=== PATIENT | female | born 1995 | race Caucasian/White ===

== ENCOUNTER 2017-01-25 14:20 | Emergency (ER) | payer BC ==
[2017-01-25 15:09] VITALS: BP 104/65
--- NOTE | 2017-01-25 15:19 | UC ---
General HPI - HPI Summary HPI Summary: 21 yo female with PMH of frequent UTIs who presents with c/o N/V/D for 3-4 days. late evening developed acute onset of N/V/D. She saw pcp on Thursday and was dx with GI bug and prescribed zofran. She has continued nausea and abdominal discomfort, no vomiting or diarrhea in 2 days and reports low back pain but states this is her baseline. Denies flank pain. Denies hematuria, increased urinary frequency, urgency or burning with urination. No fevers or chills. Minimal food since but has been able to keep fluids down. - History of Current Complaint Chief Complaint: UCGI Stated Complaint: VOMITING,NAUSEA,FLANK PAIN Time Seen by Provider: 01/25/17 15:12 Hx Obtained From: Patient Onset/Duration: Sudden Onset Onset Severity: Severe Current Severity: Moderate Associated Signs & Symptoms: Positive: Abdominal Pain, Diarrhea, Nausea, Vomiting - Allergy/Home Medications Allergies/Adverse Reactions: Allergies Allergy/AdvReac Type Severity Reaction Status Date / Time Ondansetron AdvReac Severe Headache Verified 01/25/17 15:10 Sulfamethoxazole AdvReac Severe Abdominal Verified 01/25/17 15:10 w/Trimethoprim Pain [From Bactrim] Home Medications: Home Medications Ondansetron HCl [Zofran 4 MG TAB] 4 mg PO Q6HR PRN 01/25/17 [History Confirmed 01/25/17] PMH/Surg Hx/FS Hx/Imm Hx Previously Healthy: Yes - Hx of UTIs Endocrine History Of: Denies: Diabetes Cardiovascular History Of: Denies: Cardiac Disorders Respiratory History Of: Denies: Asthma - Surgical History Surgical History: None - Family History Known Family History: Positive: Hypertension - Social History Occupation: Employed Full-time Lives: With Family Alcohol Use: None Substance Use Type: None Smoking Status (MU): Never Smoked Tobacco Have You Smoked in the Last Year: No - Immunization History Most Recent Influenza Vaccination: No Hx Tetanus, Diphtheria Vaccination: Yes Vaccination Up to Date: Yes Review of Systems Constitutional: Negative, Other - N/V/D Skin: Negative Eyes: Negative ENT: Negative Respiratory: Negative Cardiovascular: Negative Gastrointestinal: Other - nausea Genitourinary: Negative Motor: Negative Neurovascular: Negative Musculoskeletal: Negative Neurological: Negative Psychological: Negative All Other Systems Reviewed And Are Negative: Yes Physical Exam Triage Information Reviewed: Yes Appearance: Well-Appearing, No Pain Distress, Ill-Appearing - mild Vital Signs: Initial Vital Signs Temp 99.6 F 01/25/17 14:57 Pulse 76 01/25/17 14:57 Resp 14 01/25/17 14:57 BP 104/65 01/25/17 14:57 Pulse Ox 100 01/25/17 14:57 Vital Signs Reviewed: Yes Eyes: Positive: Conjunctiva Clear ENT: Positive: Normal ENT inspection, Pharynx normal, TMs normal Dental Exam: Normal Neck exam: Normal Neck: Positive: Supple, Nontender, No Lymphadenopathy. Negative: Nuchal Rigidity Respiratory: Positive: Chest non-tender, Lungs clear, Normal breath sounds, No respiratory distress, No accessory muscle use. Negative: Respiratory distress, Decreased breath sounds, Accessory muscle use Cardiovascular: Positive: RRR, No Murmur, Pulses Normal, Brisk Capillary Refill. Negative: Tachycardia Abdomen Description: Positive: Nontender, No Organomegaly, Soft. Negative: Bruit, CVA Tenderness (R), CVA Tenderness (L), Distended, Guarding, Hernia @, Hepatomegaly, McBurney's Point Tenderness, Peritoneal Signs, Splenomegaly Bowel Sounds: Positive: Present Musculoskeletal Exam: Normal Musculoskeletal: Positive: Strength Intact, ROM Intact, No Edema Neurological: Positive: Alert Psychological Exam: Normal Course/Dx - Differential Dx - Multi-Symptom Differential Diagnoses: Urinary Tract Infection Provider Diagnoses: 1. Viral gastroenteritis. Discharge - Discharge Plan Condition: Stable Disposition: HOME Patient Education Materials: Gastroenteritis (ED) Forms: *Work Release Referrals: Reba Cohen MD [Primary Care Provider] - (follow up in 2 days if you are not feeling better) Additional Instructions: Increase your water intake, teas (peppermint, he), coconut water, Gatorade, broth.
== END 2017-01-25 16:08 | disposition home or self-care (01) ==
LOC: UCCORT 14:20
DX: A08.4 Viral intestinal infection, unspecified (principal); Z87.440 Personal history of urinary (tract) infections; Z88.2 Allergy status to sulfonamides; Z88.8 Allergy status to other drugs, medicaments and biological substances
CPT/HCPCS: 81003; 99211; G0463

== ENCOUNTER 2017-05-29 17:57 | Emergency (ER) | payer BC ==
[2017-05-29] MEDS ORDERED: Ketorolac INJ* 30 MG/ML 1 ML VIAL IM ONE (20:27)
[2017-05-29 21:01] VITALS: BP 116/72
--- NOTE | 2017-05-29 21:06 | RAD ---
CLINICAL HISTORY: Left flank pain COMPARISON: May 10, 2013 TECHNIQUE: Multiple contiguous axial CT scans were obtained of the abdomen and pelvis, without intravenous contrast enhancement. Coronal and sagittal multiplanar reformations are submitted for review. Oral contrast was not administered. FINDINGS: The study is limited by the lack of intravenous contrast. This limits evaluation of the solid organs and vasculature. LUNG BASES: The lung bases are clear. LIVER: The liver is normal in shape, size, contour, and attenuation. BILE DUCTS: There is no intrahepatic or extrahepatic biliary dilatation. GALLBLADDER: The gallbladder is normal, without pericholecystic inflammatory change. The stones noted on the previous examination is not evident on the current examination. PANCREAS: The pancreas is normal, without mass or ductal dilatation. SPLEEN: Normal in size and appearance. UPPER GI TRACT: Evaluation of the gastrointestinal tract is limited by incomplete gastric distention. The upper GI tract is unremarkable. SMALL BOWEL AND MESENTERY: The small bowel is normal in contour, course, and caliber. There is no obstruction or dilatation. COLON: The colon is normal in contour, course, caliber. There is no pericolonic inflammatory change. There is a tubular, vermiform, hollow viscus that is blind ending, and originates from the cecum, consistent with a normal appendix. There is no periappendiceal inflammatory change. This is best seen on images 115 through 126. ADRENALS: Normal bilaterally. KIDNEYS: The kidneys are normal in shape, size, contour, and axis. There is no hydronephrosis or nephrolithiasis. BLADDER: The bladder is incompletely distended but is grossly normal. PELVIC ORGANS: The uterus and adnexa are grossly normal for technique. Vascular calcifications are noted in the pelvis. AORTA: The aorta is normal. IVC: Unremarkable LYMPH NODES: There is no lymphadenopathy by size criteria. ABDOMINAL WALL: There is no evidence for abdominal wall hernia. BONES AND SOFT TISSUES: Unremarkable OTHER: None IMPRESSION: NO HYDRONEPHROSIS OR NEPHROLITHIASIS.
--- NOTE | 2017-05-29 21:18 | UC ---
Abdominal Pain Female HPI - HPI Summary HPI Summary: 22 yo male with left flank pain x 4 weeks anorexia increased frequency of urination hot and cold flashes smell of food makes her sick nausea wt loss - History of Current Complaint Chief Complaint: UCGU Stated Complaint: BACK PAIN,FREQ URINATING Time Seen by Provider: 05/29/17 20:12 Hx Obtained From: Patient Hx Last Menstrual Period: 05/12/17 Onset/Duration: Gradual Onset, Lasting Weeks Timing: Constant Severity Initially: Moderate Severity Currently: Moderate Pain Intensity: 6 Pain Scale Used: 0-10 Numeric Location: Other - left flank Character: Colicy Alleviating Factor(s): Nothing Associated Signs and Symptoms: Positive: Negative Allergies/Adverse Reactions: Allergies Allergy/AdvReac Type Severity Reaction Status Date / Time Ondansetron AdvReac Severe Headache Verified 05/29/17 18:02 Sulfamethoxazole AdvReac Severe Abdominal Verified 05/29/17 18:02 w/Trimethoprim Pain [From Bactrim] PMH/Surg Hx/FS Hx/Imm Hx Previously Healthy: Yes - Surgical History Surgical History: None - Family History Known Family History: Positive: Hypertension - Social History Alcohol Use: None Substance Use Type: None Smoking Status (MU): Never Smoked Tobacco Have You Smoked in the Last Year: No - Immunization History Most Recent Influenza Vaccination: No Hx Tetanus, Diphtheria Vaccination: Yes Vaccination Up to Date: Yes Review of Systems Constitutional: Negative Skin: Negative Eyes: Negative ENT: Negative Respiratory: Negative Cardiovascular: Negative Gastrointestinal: Nausea Genitourinary: Negative Motor: Negative Neurovascular: Negative Musculoskeletal: Negative Neurological: Negative Psychological: Negative All Other Systems Reviewed And Are Negative: Yes Physical Exam Triage Information Reviewed: Yes Appearance: Well-Appearing, No Pain Distress, Well-Nourished Vital Signs: Initial Vital Signs Temp 99.3 F 05/29/17 17:58 Pulse 86 05/29/17 17:58 Resp 16 05/29/17 17:58 BP 118/80 05/29/17 17:58 Pulse Ox 100 05/29/17 17:58 Vital Signs Reviewed: Yes Eyes: Positive: Conjunctiva Clear ENT: Positive: Hearing grossly normal. Negative: Nasal congestion, Nasal drainage, Tonsillar exudate, Trismus, Muffled/hoarse voice Neck: Positive: Supple, Nontender Respiratory: Positive: Lungs clear, Normal breath sounds, No respiratory distress Cardiovascular: Positive: RRR, No Murmur Abdomen Description: Positive: Nontender, No Organomegaly, CVA Tenderness (L). Negative: Distended, Guarding, McBurney's Point Tenderness, Peritoneal Signs, Pulsatile Mass Bowel Sounds: Positive: Present Musculoskeletal: Positive: ROM Intact, No Edema Neurological: Positive: Alert Psychological Exam: Normal Skin Exam: Normal Abd Pain Female Course/Dx - Differential Dx/Diagnosis Provider Diagnoses: left flank pain of uncertain cause. wt loss. nausea Discharge - Discharge Plan Condition: Stable Disposition: HOME Patient Education Materials: Flank Pain (ED) Referrals: Reba Cohen MD [Primary Care Provider] - As Soon As Possible Additional Instructions: I am unsure of the cause of your flank pain/increased urinary frequency and wt loss I suggest you try mylanta 30 ml (2 tablespoons) 4 -6 x day see your provider next week ...you may need further work up
[2017-05-29] MEDS ORDERED: Al Hydrox/Mg Hydrox/Simet LIQ* 30 ML UDC PO ONE (21:20)
[2017-05-30 14:51] LABS: Hematocrit 39 % (35-47); Hemoglobin 13.3 g/dl (12.0-16.0); Mean Corpuscular HGB Conc 34 g/dl (31-36); Mean Corpuscular Hemoglobin 31 pg (27-31); Mean Corpuscular Volume 92 fL (80-97); Mean Platelet Volume 9 um3 (7.4-10.4); Red Blood Count 4.24 10^6/ul (4.0-5.4); Red Cell Distribution Width 13 % (10.5-15); White Blood Count 8.1 10^3/ul (3.5-10.8)
[2017-05-30 15:13] LABS: Albumin 4.4 g/dL (3.2-5.2); Calcium 9.1 mg/dL (8.6-10.3); EGFR African American 104.3 (>60); EGFR Non-African American 81.1 (>60); Globulin 2.5 g/dL (2-4); Total Bilirubin 0.4 mg/dL (0.2-1.0); Total Protein 6.9 g/dL (6.4-8.9)
--- NOTE | 2017-06-01 14:35 | UC ---
Progress - Progress Note Progress Note: please call this pt and let her know that the results of her urine culture were inconclusive, possibly contaminated. if pt is still having symptoms, she can be re-evaluated by her pcp who can decide whetger the pt needs another ua. eh can tell her pcp that we want her seen tomorrow.
== END 2017-05-29 21:45 | disposition home or self-care (01) ==
LOC: UCEAST 17:57
DX: R10.9 Unspecified abdominal pain (principal); R63.4 Abnormal weight loss; R11.0 Nausea
CPT/HCPCS: 36415; 74176; 80053; 81003; 85027; 87086; 87088; 87491; 87591; 99212; A9270-GY; G0463; J1885

== ENCOUNTER 2018-08-27 16:00 | Emergency (ER) | payer OTHER ==
[2018-08-27 16:26] VITALS: BP 127/67
--- NOTE | 2018-08-27 16:51 | ED ---
Abdominal Pain/Female - HPI Summary HPI Summary: 23 yr old with five days of progressive worsening left flank pain, nausea, some diarrhea. No urinary symptoms. No SOB. Her pain is worse with eating and laying on her left side. She has had chills, but denies fever. She has no other complaints. - History of Current Complaint Chief Complaint: UCGeneralIllness Stated Complaint: LEFT SIDE/BACK PAIN Time Seen by Provider: 08/27/18 16:38 Hx Last Menstrual Period: 07/29/18 Pain Intensity: 6 Allergies/Adverse Reactions: Allergies Allergy/AdvReac Type Severity Reaction Status Date / Time sulfamethoxazole Allergy Severe Abdominal Verified 08/27/18 16:46 [From Bactrim] Pain trimethoprim [From Bactrim] Allergy Severe Abdominal Verified 08/27/18 16:46 Pain ciprofloxacin [From Cipro] Allergy Hives Verified 08/27/18 16:46 ondansetron Allergy Headache Verified 08/27/18 16:46 Home Medications: Home Medications Cyanocobalamin INJ * [Vitamin B12 INJ *] 1 syr EVERY OTHER DAY 08/27/18 [ History Confirmed 08/27/18] Norgestimate-Eth Estradiol(NF) [Ortho Tri-Cyclen (NF)] 1 tab DAILY 08/27/18 [ History Confirmed 08/27/18] PMH/Surg Hx/FS Hx/Imm Hx Endocrine/Hematology History: Reports: Hx Thyroid Disease - Rahat's Denies: Hx Diabetes Respiratory History: Denies: Hx Asthma Infectious Disease History: No Infectious Disease History: Denies: Traveled Outside the [place] in Last 30 Days - Family History Known Family History: Positive: Hypertension - Social History Alcohol Use: Rare Substance Use Type: Reports: None Smoking Status (MU): Never Smoked Tobacco Have You Smoked in the Last Year: No Review of Systems Positive: Chills Positive: Abdominal Pain, Diarrhea, Nausea Positive: flank pain All Other Systems Reviewed And Are Negative: Yes Physical Exam Triage Information Reviewed: Yes Vital Signs On Initial Exam: Initial Vitals Temp Pulse Resp BP Pulse Ox 98.3 F 77 15 127/67 100 08/27/18 16:21 08/27/18 16:21 08/27/18 16:21 08/27/18 16:21 08/27/18 16:21 Vital Signs Reviewed: Yes Appearance: Positive: Well-Appearing, No Pain Distress Skin: Positive: Warm, Skin Color Reflects Adequate Perfusion Head/Face: Positive: Normal Head/Face Inspection Eyes: Positive: EOMI ENT: Positive: Normal ENT inspection Respiratory/Lung Sounds: Positive: Clear to Auscultation, Breath Sounds Present Cardiovascular: Positive: RRR. Negative: Murmur Abdomen Description: Positive: Soft, CVA Tenderness (L). Negative: Distended, Guarding Musculoskeletal: Positive: Strength/ROM Intact Neurological: Positive: Sensory/Motor Intact, Alert, Oriented to Person Place, Time, CN Intact II-III Psychiatric: Positive: Normal - [place] Coma Scale Best Eye Response: 4 - Spontaneous Best Motor Response: 6 - Obeys Commands Best Verbal Response: 5 - Oriented Coma Scale Total: 15 Diagnostics - Vital Signs Vital Signs Temp Pulse Resp BP Pulse Ox 08/27/18 16:21 98.3 F 77 15 127/67 100 - Laboratory Lab Results: Lab Results 08/27/18 08/27/18 Range/Units 16:39 16:41 POC Urine Color Yellow POC Urine Clarity Slightly cloudy POC Urine pH 6.0 (5-9) POC Ur Specif [place] 1.025 (1.010-1.030) POC Urine Protein Negative (Negative) POC Ur Glucose (UA) Negative (Negative) POC Urine Ketones Negative (Negative) POC Urine Blood Negative (Negative) POC Urine Nitrite Negative (Negative) POC Urine Bilirubin Negative (Negative) POC Urine Urobilinogen 1.0 (Negative) POC U Leukocyte Esteras Negative (Negative) POC Ur Test Negative (Negative) Lab Statement: Any lab studies that have been ordered have been reviewed, and results considered in the medical decision making process. Abdominal Pain Fem Course/Dx - Course Course Of Treatment: 23 yr old with flank pain, and low abd pain. She will go to the ER for further work up as we have no CT, no ultrasound and labs available for expedited work up now. 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 - Diagnoses Provider Diagnoses: Flank pain, Abdominal pain Discharge - Sign-Out/Discharge Documenting (check all that apply): Patient Departure All imaging exams completed and their final reports reviewed: No Studies - Discharge Plan Condition: Good Disposition: HOME-RECOMMEND TO ED Patient Education Materials: Acute Abdominal Pain (ED), Flank Pain (ED) Referrals: Anurag Luna MD [Primary Care Provider] - Additional Instructions: You need to go to the ER for further work up of your flank pain, and abdominal pain. Please go now and do not delay. - Billing Disposition and Condition Condition: GOOD Disposition: Home-Recommend to ED
== END 2018-08-27 16:55 | disposition home health service (06) ==
LOC: UCCORT 16:00
DX: R10.9 Unspecified abdominal pain (principal); Z22.1 Carrier of other intestinal infectious diseases; Z88.1 Allergy status to other antibiotic agents
CPT/HCPCS: 81003; 84702; 99212; G0463

== ENCOUNTER 2018-12-09 05:03 | Emergency (ER) | payer OTHER ==
--- OUTSIDE RECORDS SUMMARY | 2018-12-09 05:09 | XMS REPORT | Continuity of Care Document ---
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 Anurag Luna MD Primary Care Physician Unavailable Payers Type Date Identification Numbers Payment Provider Subscriber Policy Number: [id number] [facility] Lucia Smith PayID: [id number] [address] [place] [address] Expires: 2018 Policy Number: [id number] Of SIMON Siva Smith PayID: [id number] [address] [place] [id number] Advance Directives Description No Information Available Problems Date Description Provider Status Onset: 10/05/2012 Nausea DANIEL Mckinnon-Maria G Active Onset: 11/16/2018 Chronic pelvic pain of female Georgia Oneil PA-C Active Onset: 10/06/2018 Constipation Georgia Oneil PA-C Active Onset: 10/06/2018 Left lower quadrant pain Georgia Oneil PA-C Active Family History Date Family Member(s) Problem(s) Comments Grandfather Crohn's Disease Social History Type Date Description Comments Sex Unknown ETOH Use Denies alcohol use Tobacco Use Start: Unknown Patient has never smoked Smoking Status Reviewed: 11/16/18 Patient has never smoked Allergies, Adverse Reactions, Alerts Date Description Reaction Status Severity Comments 09/21/2018 Bactrim Hives Active 09/21/2018 Cipro Vomiting Active 09/21/2018 Zofran Vomiting Active 10/05/2012 NKDA Inactive Medications Medication Date Status Form Strength Qnty SIG Indications Ordering Provider Ortho Tri-Cyclen Lo Active Tablets 0.18/0.215/ Unknown 00 0.25 mg-2 Vitamin Deficiency Active Kit 1000mcg/ML Unknown Injectable 00 System-B12 Cyclobenzaprine HCL Active Tablets 5mg Unknown 00 Immunizations Description No Information Available Vital Signs Date Vital Result Comment 11/16/2018 8:16am Height 68 inches 5'8" Weight 130.00 lb BMI (Body Mass Index) 19.8 kg/m2 10/06/2018 8:26am Height 68 inches 5'8" Weight 129.00 lb BP Systolic 116 mmHg BP Diastolic 65 mmHg Heart Rate 65 /min BMI (Body Mass Index) 19.6 kg/m2 11/17/2012 8:18am Height 68 inches 5'8" Weight 115.00 lb BMI (Body Mass Index) 17.5 kg/m2 10/05/2012 10:32am Height 68 inches 5'8" Weight 119.00 lb BP Systolic 100 mmHg BP Diastolic 56 mmHg Heart Rate 78 /min BMI (Body Mass Index) 18.1 kg/m2 Results Test Date Facility Test Result H/L Range Note Laboratory test [facility] Fecal SEE RESULT 1, 2 finding 8 Lactoferrin BELOW (Stool WBC) Stool Occult [facility] Stool Occult SEE RESULT 3 Blood Diag 8 Blood, Diag BELOW Laboratory test N2N/CCD Import Poc , negative negative finding 8 urine Urinalysis macro N2N/CCD Import Poc bilirubin, negative negative (dipstick) panel 8 urine - Urine Poc blood, urine negative negative Poc clarity, urine slightly cloudy Poc color, urine yellow Poc glucose, urine negative negative Poc ketone, urine negative negative Poc leukocytes, urine negative negative Poc nitrite, urine negative negative Poc pH, urine 6.0 5-9 Poc protein, urine negative negative Poc specific gravity, urine 1.025 1.010-1.030 Poc urobilinogen, urine 1.0 negative Surgical Pathology 10/26/2012 [facility] S RUN DATE: 4, 5 <SEE NOTE> Clotest 10/26/2012 [facility] Clotest (SEE NOTE) 6 Laboratory test 10/05/2012 [facility] Lipase 24 U/L 22-51 finding Laboratory test 10/05/2012 [facility] Anti Endomysial Negative Negative 7 finding Antibody Anti Gliadin Igg 10/05/2012 [facility] Gliadin IgG <10.0 U 8 And Iga AB Gliadin IgA <10.0 U 9 Transglutaminase Igg & Iga 10/05/2012 [facility] Tissue Transglutaminase <1.2 U/ mL 10 IgA Ab Tissue Transglutaminase IgG Ab <1.2 U/mL 11 CMP(!) 10/05/2012 [facility] Sodium(!) 143 mEq/L 134- 149 [address] [place] [address] [phone] Potassium(!) 4.0 mEq/L 3.6-5.5 Chloride Serum/Plasma(!) 103 mEq/L 94-112 Carbon Dioxide Ser/Plasm(!) 28 mEq/L 21-33 BUN - Urea Nitrogen(!) 9 mg/dL 6-24 Calcium Ser/Plasma Mass/Vol(!) 8.7 mg/dL 8.6-10.2 Creatinine Serum Mass/Vol(!) 1.1 mg/dL 0.5-1.4 Glucose Blood(!) 89 mg/dL 70-105 Uric Acid Ser/Plas Mass/Vol(!) 3.8 mg/dL 2.6-7.2 BUN/Creatinine Ratio(!) 8.2 RATIO 8.0-36 Albumin Serum/Plasma(!) 4.5 g/dL 3.5-5.2 Alkaline Phosphatase(!) 44 U/L 39-117 Bilirubin Total Mass/Vol 0.5 mg/dL 0.2-1.3 Ast - Sgot 12 U/L 5-34 Alt - SGPT 8 U/L Low 10-40 Total Protein 6.5 g/dL 6.2-8.1 Laboratory test 10/05/2012 [facility] Amylase(!) 58 U/L 25-114 finding [address] [place] [address] [phone] 1 [id number] 2 SEE RESULT BELOW Name: LUCIA SMITH : [address]: Georgia BLISS Acct: [id number] Unit: [id number] AGE: 23 Location: [facility] Re10/06/18 SEX: F Status: REG REF SPEC: [id number] WILLOW: 10/06/18-[address]: Georgia BLISS REQ: [id number] RECD: 10/08/18-1542 STATUS: RES _ SOURCE: STOOL SPDESC: ORDERED: Occult Bl, Diag, Fecal Lactoferr COMMENTS: [id number] Procedure Result Reported Site Stool Specimen Description Final 10/08/18- 1638 ML Stool Color Dark Brown Stool Form Formed Stool Consistency Firm Fecal Lactoferrin (Stool WBC) Final 10/08/18- 1649 ML Fecal Lactoferrin Negative by Immunoassay TEST LIMITATIONS: Assay detects elevated levels of lactoferrin released from fecal leukocytes as a marker of intestinal inflammation. The test may not be appropriate in immunocompromised persons. Fecal samples from breast fed infants should not be used with this assay. Stool Occult Blood (1) PENDING * ML - Main Lab . END OF REPORT DEPARTMENT OF PATHOLOGY, [address] [place] [address] Gama Arguelles M.D. Director [facility] # [id number] 3 SEE RESULT BELOW Name: LUCIA SMITH : [address]: Georgia BLISS Acct: [id number] Unit: [id number] AGE: 23 Location: [facility] Re10/06/18 SEX: F Status: REG REF SPEC: [id number] WILLOW: 10/06/18-[address]: Georgia BLISS REQ: [id number] RECD: 10/08/186792 STATUS: COMP _ SOURCE: STOOL SPDESC: ORDERED: Occult Bl, Diag, Fecal Lactoferr COMMENTS: [id number] Procedure Result Reported Site Stool Specimen Description Final 10/08/18- 1638 ML Stool Color Dark Brown Stool Form Formed Stool Consistency Firm Fecal Lactoferrin (Stool WBC) Final 10/08/18- 1649 ML Fecal Lactoferrin Negative by Immunoassay TEST LIMITATIONS: Assay detects elevated levels of lactoferrin released from fecal leukocytes as a marker of intestinal inflammation. The test may not be appropriate in immunocompromised persons. Fecal samples from breast fed infants should not be used with this assay. Stool Occult Blood (1) Final 10/08/18- 1709 ML Stool Occult Blood Negative Collection Date (1) 10/06/18 * ML - [facility] . END OF REPORT DEPARTMENT OF PATHOLOGY, [address] [place] [address] Gama Arguelles M.D. Director [facility] # [id number] 4 RUN DATE: 10/27/12 [facility] LAB LIVE PAGE 1 RUN TIME: [address] [place] [address] Specimen Inquiry Name: LUCIA SMITH : [address]: Nikko MILLER,Anastacio Briceno Acct: [id number] Unit: [id number] AGE: 17 Location: [facility] Re10/26/12 SEX: F Status: REG REF SPEC: [id number] WILLOW: 10/26/12- SUBM DR: Anastacio El MD REQ: [id number] RECD: 10/26/12 STATUS: CHEMA PECK DR: Yajaira GONZALEZ,Syed Desai _ ORDERED: LEVEL IV FINAL DIAGNOSIS Small bowel, duodenum, biopsy: Small bowel mucosa with normal villous architecture and no significant pathologic abnormalities. CLINICAL HISTORY Abdominal pain, nausea, vomiting POST-OPERATIVE DIAGNOSIS Esophagus - normal; stomach - hiatal hernia, biopsied; duodenum - normal, biopsied GROSS DESCRIPTION The specimen is received in formalin labelled Lucia Smith, Duodenal Biopsies, and consists of multiple clayton, soft tissue fragments measuring 0.9 x 0.3 x 0.1 cm. Submitted entirely, one cassette. Signed (signature on file) Gama Arguelles MD 2550 END OF REPORT * ML=Testing performed at Main Lab DEPARTMENT OF PATHOLOGY, [facility] [place], [place] [address] Gama Arguelles M.D. Director [facility] Permit #[id number] 5 11/10/12 (ThuNov 10) 06:31 AM ANASTACIO EL all her bx are normal; needs fu with either BDL or SEC no repeat EGD unless sx 6 RUN DATE: 10/27/12 [facility] LAB LIVE PAGE 1 RUN TIME: [address] [place] [address] Specimen Inquiry Name: LUCIA SMITH : [address]: Anastacio El MD Acct: [id number] Unit: [id number] AGE: 17 Location: [facility] Re10/26/12 SEX: F Status: REG REF SPEC: [id number] WILLOW: 10/26/12-[address]: Anastacio El MD REQ: [id number] RECD: 10/26/128 STATUS: VILMA PECK DR: [facility],NOP _ SOURCE: CLOTEST [facility]: ORDERED: Clotest Procedure Result Verified Site Clotest Final 10/27/12- 0757 ML Clotest Negative END OF REPORT * ML=Testing performed at Main Lab DEPARTMENT OF PATHOLOGY, [address] [place] [address] Gama Arguelles M.D. Director [facility] Permit #[id number] 7 Negative in normal Individuals. May be negative in dermatitis herpatiformis or celiac disease patients adhering to a gluten free diet. Laboratory developed test. Test Performed by: [address] [address] Test Facility Engineer: John Erwin III, M.D. R 8 -- REFERENCE VALUE -- <20.0 (Negative) Test Performed by: [address] [address] Test Facility Engineer: John Erwin III, M.D. R 9 -- REFERENCE VALUE -- <20.0 (Negative) R 10 -- REFERENCE VALUE -- <4.0 (Negative) R 11 -- REFERENCE VALUE -- <6.0 (Negative) Test Performed by: [facility] [address] [place] [address] Test Facility Engineer: John Erwin III, M.D. R Procedures Date Code Description Status 10/26/2012 [address]141 EGD+Biopsy Single Or Multiple Completed Encounters Type Date Location Provider Dx Diagnosis Office Visit 10/06/2018 [facility] García R10.32 Left lower 8:15a [facility] quadrant pain R11.0 Nausea K59.00 Constipation, unspecified Office Visit 11/17/2012 [facility] [place] 789.00 Pain Abdominal 8:30a [facility] Site [facility]-C 783.21 Loss Of Weight 787.02 Nausea Alone Office Visit 10/05/2012 [facility] [place] 789.00 Pain Abdominal 10:30a [facility] 783.21 Loss Of Weight 787.02 Nausea Alone Plan of Treatment Future Appointment(s):12/21/2018 8:15 am - Georgia Oneil PA-C at [facility]11/16/2018 - GUSTAVO Lopes CR10.32 Left lower quadrant painR10.2 Pelvic and perineal painK59.00 Constipation, unspecified
[2018-12-09] MEDS ORDERED: Morphine VIAL* 4 MG/ML VIAL (1 ml vial) IV ONE (05:21)
[2018-12-09] MEDS ORDERED: Ondansetron INJ* 2 MG/ML VIAL IV ONE (05:21)
[2018-12-09] MEDS ORDERED: Ketorolac INJ* 30 MG/ML 1 ML VIAL IV PUSH ONE (05:21)
[2018-12-09] MEDS ORDERED: NS 0.9% 1000 ML** 1,000 ML IV ONE (05:21)
--- NOTE | 2018-12-09 05:23 | ED ---
Abdominal Pain/Female - HPI Summary HPI Summary: Pt is a 23 y/o F presenting to the ED with a chief complaint of abd pain onset around 0300 described as sudden and sharp. Pt reports the pain in the periumbilical region more on the L side, worse when walking or sitting up, and she vomited twice ACCOUNTS RECEIVABLE REPRESENTATIVE. 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 She has not had pain like this since August 2018. LNMP 11/20/2018. Pt denies burning or pain w/ urination, vaginal bleeding since last period. - History of Current Complaint Chief Complaint: EDAbdPain Stated Complaint: ABD PAIN Time Seen by Provider: 12/09/18 05:15 Hx Obtained From: Patient Hx Last Menstrual Period: 11/20/2018 Onset/Duration: Sudden Onset, Lasting Hours, Still Present Timing: Constant Severity Initially: Severe Severity Currently: Severe Pain Intensity: 7 Pain Scale Used: 0-10 Numeric Location: Umbilical Radiates: No Character: Sharp Aggravating Factor(s): Movement Alleviating Factor(s): Nothing Associated Signs and Symptoms: Positive: Nausea, Vomiting. Negative: Urinary Symptoms, Vaginal Bleeding Allergies/Adverse Reactions: Allergies Allergy/AdvReac Type Severity Reaction Status Date / Time sulfamethoxazole Allergy Severe Abdominal Verified 12/09/18 05:09 [From Bactrim] Pain trimethoprim [From Bactrim] Allergy Severe Abdominal Verified 12/09/18 05:09 Pain ciprofloxacin [From Cipro] Allergy Hives Verified 12/09/18 05:09 ondansetron Allergy Headache Verified 12/09/18 05:09 PMH/Surg Hx/FS Hx/Imm Hx Previously Healthy: No Endocrine/Hematology History: Reports: Hx Thyroid Disease - Rahat's Denies: Hx Diabetes Respiratory History: Denies: Hx Asthma Infectious Disease History: No Infectious Disease History: Denies: Traveled Outside the [place] in Last 30 Days - Family History Known Family History: Positive: Hypertension - Social History Alcohol Use: Rare Substance Use Type: Reports: None Smoking Status (MU): Never Smoked Tobacco Have You Smoked in the Last Year: No Review of Systems Negative: Fever Positive: Abdominal Pain, Vomiting, Nausea Negative: burning, pain All Other Systems Reviewed And Are Negative: Yes Physical Exam - Summary Physical Exam Summary: Appearance: Well-appearing, Well-nourished, lying in bed comfortably Skin: Warm, dry, no obvious rash Eyes: sclera anicteric, no conjunctival pallor ENT: mucous membranes moist, pharynx appears normal Neck: Supple, nontender Respiratory: Clear to auscultation, no signs of respiratory distress Cardiovascular: Normal S1, S2. No murmurs. Normal distal pulses in tibial and radial bilaterally. Abdomen: Soft, limited tenderness in LLQ, normal active bowel sounds present Musculoskeletal: Normal, Strength/ROM Intact Neurological: A&Ox3, awake and alert, mentation is normal, speech is fluent and appropriate Psychiatric: affect is normal, does not appear anxious or depressed Triage Information Reviewed: Yes Vital Signs On Initial Exam: Initial Vitals Temp Pulse Resp BP Pulse Ox 97.4 F 82 16 130/84 98 12/09/18 05:05 12/09/18 05:05 12/09/18 05:05 12/09/18 05:05 12/09/18 05:05 Vital Signs Reviewed: Yes Diagnostics - Vital Signs Vital Signs Temp Pulse Resp BP Pulse Ox 12/09/18 05:05 97.4 F 82 16 130/84 98 - Laboratory Result Diagrams: 12/09/18 05:28 12/09/18 05:28 Lab Statement: Any lab studies that have been ordered have been reviewed, and results considered in the medical decision making process. Abdominal Pain Fem Course/Dx - Diagnoses Provider Diagnoses: Abdominal pain Discharge - Sign-Out/Discharge Documenting (check all that apply): Patient Departure, Sign-Out Patient Signing out patient TO: Duncan Barrientos Patient Received Moderate/Deep Sedation with Procedure: No - Discharge Plan Condition: Stable Disposition: HOME Forms: *Work Release Referrals: Anurag Luna MD [Primary Care Provider] - Anastacio El MD [Medical Doctor] - Additional Instructions: Follow up with gastro. Return to the ED if you experience any new or worsening symptoms. - Billing Disposition and Condition Condition: STABLE Disposition: Home - Attestation Statements Document Initiated by Scribe: Yes Documenting Scribe: Carmen Pelayo Provider For Whom Shonda is Documenting (Include Credential): Duncan Gray MD. Scribe Attestation: Carmen Anne scribed for Duncan Gray MD. on 12/10/18 at 1944. Scribe Documentation Reviewed: Yes Provider Attestation: The documentation as recorded by the scribe, Carmen Pelayo accurately reflects the service I personally performed and the decisions made by me, Duncan Gray MD. Status of Scribe Document: Viewed
[2018-12-09 05:34] LABS: ABS Basophils 0 10^3/ul (0-0.2); ABS Eosinophils 0.1 10^3/ul (0-0.6); ABS Lymphocytes 1.4 10^3/ul (1.0-4.8); ABS Monocytes 0.3 10^3/ul (0-0.8); ABS Neutrophils 5.1 10^3/ul (1.5-7.7); ABS Nucleated RBC 0 10^3/ul; Eosinophil % 1.4 %; Hematocrit 40 % (35-47); Hemoglobin 13.9 g/dl (12.0-16.0); Lymphocyte % 20.3 %; Mean Corpuscular HGB Conc 35 g/dl (31-36); Mean Corpuscular Hemoglobin 31 pg (27-31); Mean Corpuscular Volume 90 fL (80-97); Mean Platelet Volume 7.3 fL (7.4-10.4); Nucleated Red Blood Cells % 0; Platelet Count 173 10^3/ul (150-450); Red Blood Count 4.48 10^6/ul (4.00-5.40); Red Cell Distribution Width 13 % (10.5-15)
[2018-12-09] MEDS ORDERED: Morphine VIAL* 10 MG/ML 1 ML VIAL ONE (05:35)
[2018-12-09] MEDS ORDERED: PROCHLORPERAZINE INJ 5 MG/ML 2 ML VIAL IV ONE (05:48)
[2018-12-09 05:51] LABS: Albumin 4.2 g/dL (3.2-5.2); Albumin/Globulin Ratio 1.8 (1-3); Calcium 8.9 mg/dL (8.6-10.3); EGFR Non-African American 74.4 (>60); Globulin 2.4 g/dL (2-4); Potassium 3.7 mmol/L (3.5-5.0); Total Bilirubin 0.5 mg/dL (0.2-1.0); Total Protein 6.6 g/dL (6.4-8.9)
[2018-12-09 06:07] LABS: Urine Appearance Cloudy; Urine Bilirubin Negative (Negative); Urine Blood Negative (Negative); Urine Color Yellow; Urine Glucose Negative (Negative); Urine Ketones Negative (Negative); Urine Nitrite Negative (Negative); Urine Protein Negative (Negative); Urine Specific Gravity 1.023 (1.010-1.030); Urine Urobilinogen Negative (Negative)
--- NOTE | 2018-12-09 07:05 | ED ---
Progress - Progress Note Progress Note: This patient has been signed out from Dr. Gray to Dr. Barrientos upon shift change at 07:00 12/09/18 pending MRV pelvis and US pelvis. TRANSVAGINAL US IMPRESSION: NEGATIVE EXAM, NO EVIDENCE FOR ACUTE FINDING. ED physician has reviewed this imaging report. Venogram MRI impression: 1. MRV findings are consistent with May Thurner anatomy (visible compression of the left common iliac vein between the right common iliac artery and spine) as was seen on prior CT imaging. However there is no evidence of left iliac vein flow reversal or pathologically dilated left adnexal veins that would be consistent with May Thurner syndrome. Please correlate to pain and swelling in the left lower extremity as well as the presence of varicose veins in the left lower extremity that are not matched on the right. 2. Remaining visualized structures in the lower abdomen and pelvis appear normal within the limitations of an MRV. ED physician has reviewed this imaging report. Re-Evaluation - Re-Evaluation First Eval Re-Evaluation Time: 12:42 Change: Improved Comment: Patient is ready for discharge. Course/Dx - Course Course Of Treatment: Ms. Webb had a negative ultrasound and MRV here in the emergency department. On reevaluation she was nontoxic in appearance with stable vital signs and only very mild tenderness. I recommended follow-up as an outpatient and continued symptomatic, conservative treatment. - Diagnoses Provider Diagnoses: Abdominal pain Discharge - Sign-Out/Discharge Documenting (check all that apply): Patient Departure - DC Patient Received Moderate/Deep Sedation with Procedure: No - Discharge Plan Condition: Stable Disposition: HOME Forms: *Work Release Referrals: Anurag Luna MD [Primary Care Provider] - Anastacio El MD [Medical Doctor] - Additional Instructions: Follow up with gastro. Return to the ED if you experience any new or worsening symptoms. - Billing Disposition and Condition Condition: STABLE Disposition: Home - Attestation Statements Document Initiated by Gisselleibgurvinder: Yes Documenting Scribe: Aguila Peace Provider For Whom Shonda is Documenting (Include Credential): Duncan Barrientos MD Scribe Attestation: Aguila Anne, scribed for Duncan Barrientos MD on 12/09/18 at 1811. Scribe Documentation Reviewed: Yes Provider Attestation: The documentation as recorded by the scribe, Aguila DesRochers accurately reflects the service I personally performed and the decisions made by me, Duncan Barrientos MD Status of Scribe Document: Viewed
[2018-12-09] MEDS ORDERED: Gadobenate* (CONTRAST) 529 MG/ML 10 ML SDV IV ONE (11:00)
[2018-12-09 12:49] VITALS: BP 104/56
== END 2018-12-09 13:01 | disposition home or self-care (01) ==
LOC: ED 05:03
DX: R10.32 Left lower quadrant pain (principal); R10.33 Periumbilical pain; R11.2 Nausea with vomiting, unspecified; Z88.2 Allergy status to sulfonamides; Z88.8 Allergy status to other drugs, medicaments and biological substances
CPT/HCPCS: 36415; 72198; 76830; 80053; 81003; 85025; 96374; 96375; 99284; A9577; C8920; J0780; J1885; J2270; J2405

== ENCOUNTER 2019-02-21 09:30 | Emergency (ER) | payer SELFPAY ==
[2019-02-21 10:19] VITALS: BP 111/69
--- NOTE | 2019-02-21 10:34 | UC ---
UC General HPI - HPI Summary HPI Summary: per triage, Sore throat x10 days. Hurts to swallow. Fever at home. Mild runny nose and cough. Pt does want to note she has not gotten her period in 3 months, did start new control pill 3 months ago. pt has an appointment tomorrow for a test. - History of Current Complaint Chief Complaint: UCGeneralIllness Stated Complaint: SORE THROAT,COUGH Time Seen by Provider: 02/21/19 10:27 Hx Obtained From: Patient Hx Last Menstrual Period: 11/2018 Onset/Duration: Gradual Onset Timing: Constant Pain Intensity: 8 Associated Signs & Symptoms: Negative: Fever - Allergy/Home Medications Allergies/Adverse Reactions: Allergies Allergy/AdvReac Type Severity Reaction Status Date / Time sulfamethoxazole Allergy Severe Abdominal Verified 02/21/19 10:14 [From Bactrim] Pain trimethoprim [From Bactrim] Allergy Severe Abdominal Verified 02/21/19 10:14 Pain ciprofloxacin [From Cipro] Allergy Hives Verified 02/21/19 10:14 ondansetron Allergy Headache Verified 02/21/19 10:14 Home Medications: Home Medications Control Pill 1 tab PO DAILY 02/21/19 [History Confirmed 02/21/19] PMH/Surg Hx/FS Hx/Imm Hx - Additional Past Medical History Additional PMH: anemia, GOLDEN that is being evaluated by cardiology Endocrine History: Thyroid Disease - Surgical History Surgical History: None - Family History Known Family History: Positive: Hypertension - Social History Alcohol Use: None Substance Use Type: None Smoking Status (MU): Never Smoked Tobacco Have You Smoked in the Last Year: No - Immunization History Most Recent Influenza Vaccination: 08/2017 Hx Tetanus, Diphtheria Vaccination: Yes Vaccination Up to Date: Yes Review of Systems All Other Systems Reviewed And Are Negative: Yes Constitutional: Negative: Fever ENT: Positive: Sore Throat, Sinus Congestion Respiratory: Positive: Shortness Of Breath - GOLDEN, be evaluated by cardiology, Cough Genitourinary: Positive: Other - chronic pelvic pain Physical Exam Triage Information Reviewed: Yes Appearance: Well-Appearing Vital Signs: Initial Vital Signs Temp 98.2 F 02/21/19 10:07 Pulse 93 02/21/19 10:07 Resp 16 02/21/19 10:07 BP 111/69 02/21/19 10:07 Pulse Ox 100 02/21/19 10:07 Vital Signs Reviewed: Yes Eyes: Positive: Conjunctiva Clear ENT: Positive: Pharyngeal erythema - slight, Nasal congestion, TMs normal. Negative: Nasal drainage, Trismus, Muffled voice, Hoarse voice Neck: Positive: Supple, Nontender, No Lymphadenopathy Respiratory: Positive: Lungs clear, Normal breath sounds, No respiratory distress Cardiovascular: Positive: RRR, No Murmur Abdomen Description: Positive: Nontender Bowel Sounds: Positive: Present Musculoskeletal: Positive: ROM Intact Neurological: Positive: Alert Psychological: Positive: Age Appropriate Behavior Skin Exam: Normal Course/Dx - Course Course Of Treatment: DIAGNOSTIC=RAPID STREP IS NEGATIVE - Diagnoses Provider Diagnosis: URI (upper respiratory infection) Discharge - Sign-Out/Discharge Documenting (check all that apply): Patient Departure All imaging exams completed and their final reports reviewed: No Studies - Discharge Plan Condition: Stable Disposition: HOME Patient Education Materials: Upper Respiratory Infection (DC) Forms: *Work Release Referrals: Anurag Luna MD [Primary Care Provider] - Additional Instructions: FOLLOW UP WITH PRIMARY CARE IF NOT BETTER IN 3-5 DAYS OR SOONER IF WORSE. - Billing Disposition and Condition Condition: STABLE Disposition: Home
== END 2019-02-21 10:48 | disposition home or self-care (01) ==
LOC: UCCORT 09:30
DX: J06.9 Acute upper respiratory infection, unspecified (principal)
CPT/HCPCS: 87651; 99211; G0463

== ENCOUNTER 2019-10-05 12:50 | Emergency (ER) | payer MEDICAID, OTHER ==
[2019-10-05 13:03] VITALS: BP 105/57
--- NOTE | 2019-10-05 14:17 | ED ---
Lower Extremity - HPI Summary HPI Summary: 24-year-old female presents to urgent care for complaints of right ankle pain. States just prior to arrival she was descending some steps when she missed a step and caused an inversion injury to her right ankle. Reports pain and swelling to the lateral aspect the ankle. She has been unable to walk or bear weight since the injury due to the pain. Denies any numbness or tingling. - History of Current Complaint Chief Complaint: UCLowerExtremity Stated Complaint: RT ANKLE PAIN Time Seen by Provider: 10/05/19 13:11 Hx Obtained From: Patient Hx Last Menstrual Period: 08/20/19 Pain Intensity: 9 - Allergies/Home Medications Allergies/Adverse Reactions: Allergies Allergy/AdvReac Type Severity Reaction Status Date / Time sulfamethoxazole Allergy Severe Abdominal Verified 10/05/19 13:03 [From Bactrim] Pain trimethoprim [From Bactrim] Allergy Severe Abdominal Verified 10/05/19 13:03 Pain ciprofloxacin [From Cipro] Allergy Hives Verified 10/05/19 13:03 ondansetron Allergy Headache Verified 10/05/19 13:03 Home Medications: Home Medications + Dha Combo Pack 1 tab PO DAILY 10/05/19 [History Confirmed 10/05/19] PMH/Surg Hx/FS Hx/Imm Hx Endocrine/Hematology History: Reports: Hx Thyroid Disease - Rahat's Denies: Hx Diabetes Respiratory History: Denies: Hx Asthma - Immunization History Date of Tetanus Vaccine: utd Date of Influenza Vaccine: fall 2017 Infectious Disease History: No Infectious Disease History: Denies: Traveled Outside the [place] in Last 30 Days - Family History Known Family History: Positive: Hypertension - Social History Occupation: Employed Full-time Lives: With Family Alcohol Use: None Substance Use Type: Reports: None Smoking Status (MU): Never Smoked Tobacco Have You Smoked in the Last Year: No Review of Systems Constitutional: Negative Cardiovascular: Negative Respiratory: Negative Gastrointestinal: Negative Genitourinary: Negative Musculoskeletal: Other - See HPI Negative: Bruising Neurological: Negative All Other Systems Reviewed And Are Negative: Yes Physical Exam - Summary Physical Exam Summary: GENERAL APPEARANCE: Well developed, well nourished, alert and cooperative, and appears to be in no acute distress. CARDIAC: Normal S1 and S2. No S3, S4 or murmurs. Rhythm is regular. There is no peripheral edema, cyanosis or pallor. Extremities are warm and well perfused. Capillary refill is less than 2 seconds. Peripheral pulses intact. LUNGS: Clear to auscultation without rales, rhonchi, wheezing or diminished breath sounds. ABDOMEN: Positive bowel sounds. Soft, nondistended, nontender. No guarding or rebound. No masses or hepatosplenomegally. MUSKULOSKELETAL: ROM intact to all extremities. No joint erythema or tenderness. Normal muscular development. Normal gait. EXTREMITIES: Tenderness over the right lateral malleolus with moderate edema. No gross deformity or ecchymosis. No laxity. Circulation and sensation intact. SKIN: Skin normal color, texture and turgor with no lesions or eruptions. Triage Information Reviewed: Yes Vital Signs On Initial Exam: Initial Vitals Temp Pulse Resp BP Pulse Ox 98.8 F 106 16 105/57 100 10/05/19 13:01 10/05/19 13:01 10/05/19 13:01 10/05/19 13:01 10/05/19 13:01 Vital Signs Reviewed: Yes Diagnostics - Vital Signs Vital Signs Temp Pulse Resp BP Pulse Ox 10/05/19 13:01 98.8 F 106 16 105/57 100 - Laboratory Lab Results: Lab Results 10/05/19 Range/Units 13:34 POC Ur Test Negative (Negative) Lab Statement: Any lab studies that have been ordered have been reviewed, and results considered in the medical decision making process. - Radiology No standard instances Radiology Interpretation Completed By: Radiologist Summary of Radiographic Findings: Order Information: ANKLE RIGHT 3+VWS. Indication: Right ankle injury. 3 views of the right ankle demonstrates ankle mortise to be intact. There is no evidence of fracture or dislocation. No other bone or joint abnormality is identified. IMPRESSION: No fracture of the right ankle is noted. Lower Extremity Course/Dx - Course Course Of Treatment: 24-year-old female presents to urgent care for complaints of right ankle pain. States just prior to arrival she was descending some steps when she missed a step and caused an inversion injury to her right ankle. Reports pain and swelling to the lateral aspect the ankle. She has been unable to walk or bear weight since the injury due to the pain. Denies any numbness or tingling. Afebrile. Vital signs stable. Exam revealed tenderness over the right lateral malleolus with moderate edema. No gross deformity or ecchymosis. No laxity. Circulation and sensation intact. X-ray showed no acute fracture or dislocation. Reviewed results with the patient. Recommending conservative treatment for right ankle sprain including [id number] analgesics and RACE. Patient was placed in an Berry wrap and gel splint by the RN. Patient states she has crutches at home and will use these for progressive weightbearing. She is to follow-up with orthopedic surgery in 7 days if symptoms are not improving. Anticipatory guidance and warning symptoms were reviewed with the patient. Verbalizes understanding and agrees to plan of care. - Diagnoses Differential Diagnosis/HQI/PQRI: Positive: Contusion, Dislocation, Fracture ( Closed), Sprain Provider Diagnoses: Right ankle sprain Discharge ED - Sign-Out/Discharge Documenting (check all that apply): Patient Departure All imaging exams completed and their final reports reviewed: Yes - Discharge Plan Condition: Stable Disposition: HOME Patient Education Materials: Ankle Sprain (ED), Crutch Instructions (ED), Ankle Stirrup Splint (ED) Forms: *Work Release Referrals: Madeline Mancilla MD [Primary Care Provider] - Everardo Martinez MD [Medical Doctor] - 7 Days (If no improvement in symptoms. Call for appointment.) Additional Instructions: The x-ray performed in the clinic today showed no evidence of a fracture. Rest the ankle as much as possible. Use the Berry wrap to help manage swelling and wear the stirrup splint that was applied in the clinic for support until you are pain free. You may remove to sleep and shower however should wear at all other times. Use your crutches to slowly increase the amount of weight that she can bear on the ankle. Apply ice to the affected area for 15-20 minutes at least 4 times a day to help with the pain and swelling. Elevate the leg to help reduce swelling. Take acetaminophen (Tylenol) or ibuprofen (Advil, Motrin) according to directions as needed for pain. Follow up with orthopedic surgery in 7 days if symptoms do not improve. Seek immediate medical attention if you have severe pain not managed with pain medication, you are unable to walk or bear any weight, develop numbness or tingling in the foot or toes, or have any worsening of symptoms. - Billing Disposition and Condition Condition: STABLE Disposition: Home
== END 2019-10-05 14:22 | disposition home or self-care (01) ==
LOC: UCEAST 12:50
DX: S93.401A Sprain of unspecified ligament of right ankle, initial encounter (principal); Z88.2 Allergy status to sulfonamides; Z88.1 Allergy status to other antibiotic agents; Z88.8 Allergy status to other drugs, medicaments and biological substances; X50.9XXA Other and unspecified overexertion or strenuous movements or postures, initial encounter; Y92.9 Unspecified place or not applicable
CPT/HCPCS: 84702; 99213; G0463